=== PATIENT | male | born 1975 | race Caucasian/White ===

== ENCOUNTER 2023-11-08 17:12 | Inpatient (IN) ==
[2023-11-08 20:36] LABS: Urine Appearance Clear; Urine Bilirubin Negative (Negative); Urine Blood Negative (Negative); Urine Color Yellow; Urine Glucose Negative (Negative); Urine Ketones Negative (Negative); Urine Nitrite Negative (Negative); Urine Protein Negative (Negative); Urine Specific Gravity 1.016 (1.002-1.030); Urine Urobilinogen Negative (Negative)
[2023-11-08 20:44] LABS: ABS Basophils 0.1 10^3/uL (0.0-0.1); ABS Eosinophils 0.1 10^3/uL (0.0-0.5); ABS Lymphocytes 1.3 10^3/uL (1.0-4.8); ABS Monocytes 0.6 10^3/uL (0.0-1.1); ABS Neutrophils 3.1 10^3/uL (1.5-7.6); Eosinophil % 2.8 %; Hematocrit 40.4 % (38-53); Hemoglobin 13.9 g/dL (13.2-16.3); Lymphocyte % 25.1 %; Mean Corpuscular Hemoglobin 30.3 pg (27-33); Mean Corpuscular Hgb Conc 34.3 g/dL (31-36); Mean Corpuscular Volume 88.5 fL (80-97); Mean Platelet Volume 9.3 fL (7.5-11.2); Nucleated Red Blood Cells % 0.1 %/100WBC (0.0-0.8); Platelet Count 215 10^3/uL (150-450); Red Blood Count 4.57 10^6/uL (4.06-5.63); White Blood Count 5.2 10^3/uL (3.6-10.2)
[2023-11-08 20:51] LABS: ALT 17 U/L (7-52); AST 22 U/L (13-39); Albumin 4.3 g/dL (3.2-5.2); Albumin/Globulin Ratio 1.8 (1-3); Alkaline Phosphatase 83 U/L (35-149); Anion Gap 7 mmol/L (2-16); Blood Urea Nitrogen 20 mg/dL (6-24); C Reactive Protein < 1.00 mg/L (<8.01); CO2 Carbon Dioxide 28 mmol/L (22-32); Calcium 9.3 mg/dL (8.6-10.3); Chloride 104 mmol/L (101-111); Creatinine, Serum 0.81 mg/dL (0.67-1.17); Globulin 2.4 g/dL (2-4); Glucose 97 mg/dL (70-100); Magnesium 2.2 mg/dL (1.9-2.7); Phosphorus 2.5 mg/dL (2.5-5.0); Potassium 4.1 mmol/L (3.5-5.0); Sodium 139 mmol/L (135-145); Total Bilirubin 0.3 mg/dL (0.2-1.0); Total Protein 6.7 g/dL (6.4-8.9); eGFR CKD-EPI 108.8 (>60)
[2023-11-08] MEDS: methylPREDNISolone SOD SUCC 1,000 MG in NS 0.9% 1000 ml BAG 1,000 ML IVPB ONE (21:09)
[2023-11-08] MEDS: methylPREDNISolone SOD SUCC 125 mg 2 ML VIAL IV ONE (21:12)
[2023-11-08] MEDS: Enoxaparin 40 MG/0.4 ML SYR SUBCUT SCH (23:15)
[2023-11-09 00:40] LABS: TSH Ultra Thyroid Stim Horm 0.03 mcIU/mL (0.34-5.60)
[2023-11-09 00:51] LABS: Vitamin B12 698 pg/mL (180-914)
[2023-11-09 00:52] LABS: Folate > 20.00 ng/mL (5.90-24.80)
[2023-11-09 00:55] LABS: Vitamin D Total 25(OH) 52.5 ng/mL (20-50)
[2023-11-09 06:10] LABS: ABS Lymphocytes 0.5 10^3/uL (1.0-4.8); ABS Neutrophils 4.9 10^3/uL (1.5-7.6); Eosinophil % 0.1 %; Hematocrit 41.3 % (38-53); Lymphocyte % 8.7 %; Mean Corpuscular Hgb Conc 33.9 g/dL (31-36); Mean Corpuscular Volume 88.5 fL (80-97); Mean Platelet Volume 9.5 fL (7.5-11.2); Platelet Count 222 10^3/uL (150-450); Red Blood Count 4.67 10^6/uL (4.06-5.63); Red Cell Distribution Width 12.8 % (12-17); White Blood Count 5.4 10^3/uL (3.6-10.2)
[2023-11-09 06:27] LABS: Calcium 8.9 mg/dL (8.6-10.3); Creatinine, Serum 0.7 mg/dL (0.67-1.17); Potassium 3.9 mmol/L (3.5-5.0); eGFR CKD-EPI 113.7 (>60)
[2023-11-09 09:36] LABS: Free T3 2.92 pg/mL (2.5-3.9); Free T4 1.08 ng/dL (0.61-1.12)
[2023-11-09] MEDS: methylPREDNISolone SOD SUCC 1,000 MG in NS 0.9% 250 ml 250 ML IVPB SCH (15:25)
[2023-11-09] MEDS: Enoxaparin 40 MG/0.4 ML SYR SUBCUT SCH (20:05)
[2023-11-11] MEDS: Gadoteridol (CONTRAST) 279.3 MG/ML 10 ML IV ONE (01:33)
[2023-11-11 09:55] VITALS: BP 127/60
[2023-11-11] MEDS: methylPREDNISolone SOD SUCC 1,000 MG in NS 0.9% 250 ml 250 ML IVPB SCH (11:28)
== END 2023-11-11 13:30 | disposition home or self-care (01) | DRG 43 ==
LOC: EDHOLD 17:12 → ED 17:12 → SUATTDRO 20:59 → MED 11-09 10:12
PROVIDERS: ADMIT Internal Medicine; ATTEND Internal Medicine